=== PATIENT | female | born 1965 | race Caucasian/White ===

== ENCOUNTER → 2020-10-25 10:33 | Outpatient (CLI) | payer BC, SELFPAY ==
--- NOTE | ~2020-10-25 | MM_ITS ---
EXAMINATION: MM screening [facility] BI w mae HISTORY: Screening mammogram TECHNIQUE: Craniocaudal and mediolateral oblique 3-D tomosynthesis images were obtained and synthetic 2-D images were generated. CAD analysis was submitted and interpreted. COMPARISON: 11/22/2018, 07/01/2017, 05/27/2016 BREAST PARENCHYMAL COMPOSITION: The breasts are almost entirely fatty. FINDINGS: There is no evidence of suspicious mass, calcification, or architectural distortion to sugg est malignancy in either breast. There has been no suspicious interval change. IMPRESSION: 1. No mammographic evidence of malignancy. 2. Recommend routine screening mammography in one year. BI-RADS Category 1: Negative Reviewed, dictated and finalized at location A.
== END ==
PROVIDERS: PCP Family Medicine; Visit Provider Physician Assistant
DX: Z12.31 Encounter for screening mammogram for malignant neoplasm of breast (principal)
CPT/HCPCS: 77063; 77067

== ENCOUNTER → 2021-12-20 11:14 | Outpatient (CLI) | payer BC, SELFPAY ==
--- NOTE | ~2021-12-20 | MM_ITS ---
EXAMINATION: MM screening [facility] BI w mae HISTORY: Screening TECHNIQUE: Craniocaudal and mediolateral oblique 3-D tomosynthesis images were obtained and synthetic 2-D images were generated. CAD analysis was submitted and interpreted. COMPARISON: 10/25/2020, 11/22/2018, 07/01/2017 bilateral screening mammogram examinations BREAST PARENCHYMAL COMPOSITION: The breasts are almost entirely fatty. FINDINGS: Biopsy marker on the right; history of prior benign right breast biopsy in 2007. There is n o evidence of suspicious mass, calcification, or architectural distortion to suggest malignancy in ei ther breast. There has been no suspicious interval change. IMPRESSION: 1. No mammographic evidence of malignancy. 2. Recommend routine screening mammography in one year. BI-RADS Category 1: Negative Reviewed, dictated and finalized at location A.
== END ==
PROVIDERS: PCP Family Medicine; Visit Provider Physician Assistant
DX: Z12.31 Encounter for screening mammogram for malignant neoplasm of breast (principal)
CPT/HCPCS: 77063; 77067

== ENCOUNTER → 2021-12-20 11:24 | Outpatient (CLI) | payer BC, SELFPAY ==
--- NOTE | ~2021-12-20 | US_ITS ---
EXAMINATION: US transvaginal DATE: 12/20/2021 11:50 INDICATION: Postmenopausal bleeding TECHNIQUE: Multiple endovaginal sonographic images of the pelvis were obtained. COMPARISON: None. FINDINGS: The uterus measures 7.8 x 6.8 x 3.9 cm. The endometrial complex measures 6 mm. The ovaries are not visualized however no adnexal abnormality is seen. There is no free fluid in the pelvis. IMPRESSION: 1. No sonographic correlate for the patient's symptoms. Reviewed, dictated and finalized at location B.
== END ==
PROVIDERS: PCP Family Medicine; Visit Provider Obstetrics & Gynecology Gynecology
DX: N95.0 Postmenopausal bleeding (principal)
CPT/HCPCS: 76830

== ENCOUNTER 2022-01-27 02:04 | Day surgery (SDC) | payer BC, SELFPAY ==
[2022-01-10 11:23] VITALS: BMI 31.0
[2022-01-27 09:39] VITALS: BP 132/77; PULSE 74; RESP 18; TEMP 36.7; O2SAT 99
--- NOTE | 2022-01-27 09:40 | P.PNAN_ITS ---
Anes - Initial Pre Proc Eval Procedure: Operation Date: 01/27/22 10:30 Proposed Procedures p Screening Colonoscopy - Nilesh Amanda MD Date/Time: 01/27/22 09:40 Surgeon: Nilesh Amanda MD Pre Op Diagnosis: neoplasm screening Patient Data Age: 56 Gender: F Height: 1.63 m Weight: 82 kg Allergies Allergy/AdvReac Type Severity Reaction Status Date / Time Sulfa (Sulfonamide Allergy Unknown Rash Verified 01/27/22 09:39 Antibiotics) sulfanilamide Allergy Unknown Rash Verified 01/27/22 09:39 Home Medications Medication Instructions Recorded Confirmed Type No Home Medications 01/27/22 01/27/22 History Patient hx anesthesia problems: none Family hx anesthesia problems: none Results Review: All pre-operative results and documents have been reviewed as part of the pre- operative evaluation. [facility] Surgical History Surgical History (Updated 01/27/22 @ 09:40 by Victor Manuel Bliss DO) History of cholecystectomy Social History Social History Smoking status: Never smoker Second hand tobacco smoke exposure: No Smoking end date: 04/13/94 Alcohol intake: never Living arrangements: with family Spiritual care concerns: No Anes - Eval Final PreProcedure Day of Procedure 01/27/22 09:40 Patient weight: obese Heart: regular rate and rhythm Lungs: clear to auscultation Airway: Mallampati scale class II Neurological: alert and oriented Last oral intake: >/= 8 hours ASA classification: II Emergent: no Anesthetic plan: proceed Anesthesia type and monitoring: general GIVS and standard monitoring Results Review: All pre-operative results and documents have been reviewed as part of the pre- operative evaluation. Informed Consent: The patient's anesthetic plan and its attendant risks and benefits were discussed with the patient/family/POA. Questions were solicited and answers provided to the satisfaction of the patient/family/POA.
[2022-01-27] MEDS: LACTATED RINGERS 1,000 ML 150 ML IV CONT (09:50)
--- NOTE | 2022-01-27 10:15 | P.HP_ITS ---
History of Present Illness History of Present Illness Consent: Risks, benefits, and alternatives have been discussed and questions answered. Patient agrees to proceed with procedure. Chief complaint: neoplasm screening Narrative: Ann Conrad is a 56 year old female Presents for screening colonoscopy. Patient's current weight appetite and bowel movements are normal. Patient denies abdominal pain. She has had no bleeding. Family history is noncontri butory. [facility] Surgical History Surgical History (Updated 01/27/22 @ 09:40 by Victor Manuel Bliss DO) History of cholecystectomy Social History Social History Smoking status: Never smoker Second hand tobacco smoke exposure: No Smoking end date: 04/13/94 Alcohol intake: never Living arrangements: with family Spiritual care concerns: No Meds Home Medications and Allergies Home Medications Medication Instructions Recorded Confirmed Type No Home Medications 01/27/22 01/27/22 History Allergies Allergy/AdvReac Type Severity Reaction Status Date / Time Sulfa (Sulfonamide Allergy Unknown Rash Verified 01/27/22 09:39 Antibiotics) sulfanilamide Allergy Unknown Rash Verified 01/27/22 09:39 Exam Narrative: Physical exam reveals patient to be alert. Vital signs stable. HEENT exam is unremarkable. Patient is anicteric. Lungs are clear to auscultation and percussion. Heart is without murmur or extra sounds. Abdomen bowel sounds are present soft nontender with no organomegaly. Digital external rectal exam is normal. Assessment and Plan Assessment and plan (1) Encounter for screening colonoscopy: Code(s): Z12.11 - Encounter for screening for malignant neoplasm of colon Status: Acute Assessment and Plan: Patient presents for screening colonoscopy. Patient appears to be at average risk for colon polyps. Further recommendations will be given after endoscopy.
[2022-01-27 10:43] VITALS: BP 83/48; PULSE 78; RESP 22; O2SAT 94
[2022-01-27 10:53] VITALS: BP 104/67; PULSE 71; RESP 18; O2SAT 93
== END 2022-01-27 11:18 | disposition home or self-care (01) ==
PROVIDERS: PCP Family Medicine; Visit Provider Internal Medicine Gastroenterology
PROC: 0DJD8ZZ Inspection of Lower Intestinal Tract, Via Natural or Artificial Opening Endoscopic (ICD-10-PCS; CPT 45378; principal; 2022-01-27 10:30)
DX: Z12.11 Encounter for screening for malignant neoplasm of colon (principal); K64.8 Other hemorrhoids; Z90.49 Acquired absence of other specified parts of digestive tract; E66.9 Obesity, unspecified; Z68.30 Body mass index [BMI] 30.0-30.9, adult
CPT/HCPCS: 45378; J2704; J7120

== ENCOUNTER 2022-02-10 02:24 | Day surgery (SDC) | payer BC, SELFPAY ==
[2022-02-05 13:27] VITALS: BMI 31.0
--- NOTE | 2022-02-05 13:38 | PC.NURSE ---
Report to the Outpatient Waiting Room, entrance under the green pavilion located off [facility], at time __12:15PM on date __02/10/22 . Planned Procedure Time: ___2:15PM . Time changes happen often and if your time is changed the preop area will call you the afternoon before. - You and your visitor will be asked to self-screen and do not enter if you have any COVID symptoms. - We encourage only one visitor and NO visitors under age 16 are allowed at this time. Your visitor will receive communication by the phone number that is given day of service. - The patient visitor is requested to social distance or may leave the building when not with patient due to restrictions. - A mask is required within the hospital. Patients may have clear liquids (water, carbonated beverages, clear teas, apple juice) until 3 hours prior to surgery with a maximum of 20 ounces. - No food from midnight until time of surgery Take the following medications with a SIP of water the morning of surgery: __NONE Medications to discontinue per physician NONE Date to take last dose Please no make-up, nail armenian, hairspray, perfume, deodorant, or body powder the day of surgery. No jewelry (including any body piercings) or valuables the day of surgery, leave them at home. Please take a shower or bath the night before, or the morning of, surgery with an antibacterial soap. Wear comfortable, loose fitting clothing. Children are encouraged to wear pajamas. - Jewelry must be removed prior to entering the operating room. Rings and piercings that are not removed may be cut off. - The hospital will not accept responsibility for valuables. - Please leave all valuables, including medications, at home the day of surgery. If you are going home after surgery, a licensed test car driver must drive you home. - NO public transportation without another adult. - We recommend that an adult stay with you for 24 hours following discharge. - We also recommend that you do not drive, make important decision, drink alcoholic beverages, or take any drugs that were not prescribed by your health care provider for at least 24 hours after your discharge time. Follow any additional instructions given to you from your surgeon. If you or anyone in your household have experienced Covid symptoms in the past week, please notify your surgeon or the nurse liaison at the phone number below for possible testing. Telephone instructions given to __PATIENT and asked if any additional questions and then verbalized understanding. Patient advised to call surgeon office or pre surgery nurse liaison [phone] if any additional questions.
--- NOTE | 2022-02-10 10:48 | WPDHPUPDATE1 ---
History and Physical Update Update Date/Time: 02/10/22 10:48 History and Physical has been reviewed, including an updated exam of the patient. There are NO changes in the patient's condition. Risks, benefits, and alternatives have been discussed and questions answered. Patient agrees to proceed with procedure.
--- NOTE | 2022-02-10 10:48 | PM.HPGS ---
History of Present Illness History of Present Illness Consent: Risks, benefits, and alternatives have been discussed and questions answered. Patient agrees to proceed with procedure. Chief complaint: post menopausal bleeding Narrative: Ann Conrad is a 56 year old female with bleeding episode for 3 to 4 days in October. Patient presented as a new patient on December 05 and pelvic ultrasound was ordered and completed 12/20 showing a 6mm endometrial complex. It was recommended to proceed with D&C hysteroscopy. Risks of infection, bleeding, perforation, and possible pathology were reviewed. Review of Systems Review of Systems: not repeated day of surgery; patient states no changes in status PMFSH Past Medical History Medical History (Updated 02/10/22 @ 10:52 by Eulalia Oropeza MD) (normal spontaneous vaginal delivery) x1 Surgical History Surgical History (Updated 02/10/22 @ 10:51 by Eulalia Oropeza MD) History of x1 History of cholecystectomy Social History Social History Smoking status: Never smoker Second hand tobacco smoke exposure: No Smoking end date: 04/13/94 Alcohol intake: never Substance use: never Living arrangements: alone Spiritual care concerns: No Meds Home Medications and Allergies Home Medications Medication Instructions Recorded Confirmed Type No Home Medications 02/05/22 02/05/22 History Allergies Allergy/AdvReac Type Severity Reaction Status Date / Time Sulfa (Sulfonamide Allergy Unknown Rash Verified 02/05/22 13:26 Antibiotics) Exam Const: General: healthy appearing and alert Orientation/consciousness: patient oriented x3 Resp: Effort & Inspection: normal respiratory effort GI: GI Palp: Yes Soft to palpation, No Tenderness to palpation present (GI) and No Palpable mass present : External Female Exam: normal external appearance Speculum Exam - Vagina: normal appearance of the vagina and normal vaginal discharge Speculum Exam - Cervix: normal appearance of the cervix Bimanual exam- vagina & uterus: uterine size normal and consistency normal Bimanual Exam- Adnexa, other: normal adnexae and No adnexal tenderness Neuro: General: patient oriented x3 Assessment and Plan Assessment and plan (1) Post-menopausal bleeding: Code(s): N95.0 - Postmenopausal bleeding Status: Acute Assessment and Plan: plan is to proceed with D&C hysteroscopy
[2022-02-10 12:29] VITALS: BP 133/81; PULSE 80; RESP 16; TEMP 36.6; O2SAT 100
[2022-02-10] MEDS: ACETAMINOPHEN 500 MG TABLET 1000 MG PO (12:51)
[2022-02-10] MEDS: LACTATED RINGERS 1,000 ML 30 ML IV CONT (12:58)
--- NOTE | 2022-02-10 13:01 | P.PNAN_ITS ---
Anes - Initial Pre Proc Eval Procedure: Operation Date: 02/10/22 14:30 Proposed Procedures p Hysteroscopy, Dilation and Curettage - Eulalia Oropeza MD Date/Time: 02/10/22 13:01 Surgeon: Eulalia Oropeza MD Pre Op Diagnosis: post menopausal bleeding Patient Data Age: 56 Gender: F Height: 1.63 m Weight: 82 kg Allergies Allergy/AdvReac Type Severity Reaction Status Date / Time Sulfa (Sulfonamide Allergy Intermediate Rash Verified 02/10/22 12:41 Antibiotics) Home Medications Medication Instructions Recorded Confirmed Type No Home Medications 02/05/22 02/10/22 History Patient hx anesthesia problems: none Family hx anesthesia problems: none Results Review: All pre-operative results and documents have been reviewed as part of the pre- operative evaluation. [facility] Surgical History Surgical History History of x1 History of cholecystectomy Social History Social History Smoking status: Never smoker Second hand tobacco smoke exposure: No Smoking end date: 04/13/94 Alcohol intake: never Substance use: never Living arrangements: alone Spiritual care concerns: No Anes - Eval Final PreProcedure Day of Procedure 02/10/22 13:01 Patient weight: overweight Heart: regular rate and rhythm Lungs: clear to auscultation Airway: Mallampati scale class II Neurological: alert and oriented Last oral intake: >/= 8 hours ASA classification: III Emergent: no Anesthetic plan: proceed Anesthesia type and monitoring: general GIVS and standard monitoring Results Review: All pre-operative results and documents have been reviewed as part of the pre- operative evaluation. Informed Consent: The patient's anesthetic plan and its attendant risks and benefits were discussed with the patient/family/POA. Questions were solicited and answers provided to the satisfaction of the patient/family/POA.
[2022-02-10] MEDS: LIDOCAINE HCL 1% PF 30 ML VIAL 10 ML INFILTRATE (15:09)
[2022-02-10] MEDS: KETOROLAC 30 MG/ML VIAL (*BKC) IV PUSH (15:13)
[2022-02-10 15:19] VITALS: BP 122/71; PULSE 85; RESP 16; O2SAT 97
--- NOTE | 2022-02-10 15:20 | W.PM.PROC2 ---
Procedure Note - Detailed Date of Procedure 02/10/22 Pre-op Diagnosis post menopausal bleeding Post-op Diagnosis Same Procedure Performed D&C hysteroscopy Surgeon Eulalia Oropeza MD Anesthesia MAC and Local Findings uterus sounds to 8cm and is grossly atrophic Description of Procedure the patient is taken to the operating room and placed under anesthesia in the dorsal lithotomy position. She was prepped and draped in the usual sterile fashion. [place] speculum was placed in the vagina and the cervix grasped on the anterior lip with a tenaculum. Uterus is sounded to 8cm. The cervix is dilated to a 5 [place]. The hysteroscope was placed with no abnormalities noted it is immediately removed. The small sharp curette is used to curette the endometrium until a good uterine cry was noted in all areas. Minimal material was obtained consistent with the atrophic appearance. All instruments are removed. The patient is awakened from anesthesia in stable condition. Sponge, needle, and instrument counts are correct per the OR staff. Estimated Blood Loss 5 Drains No Packing No Pathology Yes ( Endometrial curettings) Complications No immediate complications Condition Stable Disposition PACU
[2022-02-10 15:45] VITALS: BP 118/78; PULSE 75; RESP 16; O2SAT 97
== END 2022-02-10 16:07 | disposition home or self-care (01) ==
PROVIDERS: PCP Family Medicine; Visit Provider Obstetrics & Gynecology Gynecology
PROC: 0U5B8ZZ Destruction of Endometrium, Via Natural or Artificial Opening Endoscopic (ICD-10-PCS; CPT 58563; principal; 2022-02-10 14:30)
DX: N95.0 Postmenopausal bleeding (principal); N72 Inflammatory disease of cervix uteri
CPT/HCPCS: 58558; 88305; A9270; J1885; J2250; J2704; J3010; J7120

== ENCOUNTER → 2022-02-14 14:48 | Outpatient (CLI) | payer BC, SELFPAY ==
--- NOTE | ~2022-02-14 | DEXA_ITS ---
Bone Density Report Name: MAXWELL MCNAIR Age: 56 Sex: Female Ethnicity: White Date of : 1965 Indication: postmenopausal; screening for osteoporosis; Referring Provider: ALICIA ALEXANDER Study: Bone densitometry was performed. Exam Date: February 14, 2022 Accession number: [id number] Bone Density: Region BMD T-score Z-score Classification AP Spine (L1-L4) 1.005 -0.4 0.6 Normal Femoral Neck (Left) 0.780 -0.6 0.4 Normal Total Hip (Left) 0.981 0.3 1.0 Normal Femoral Neck (Right) 0.705 -1.3 -0.3 Osteopenia Total Hip (Right) 0.917 -0.2 0.4 Normal Total Hip Mean 0.949 0.1 0.7 Normal World Health Organization criteria for BMD impression classify patients as: Normal (T-score at or above -1.0), Osteopenia (T-score between -1.0 and -2.5), or Osteoporosis (T-score at or below -2.5). 10-year Fracture Risk(1): Major Osteoporotic Fracture 5.8% Hip Fracture 0.4% Reported Risk Factors: [place] (), Neck BMD=0.705, BMI=30.8 (1) FRAX(R) Version 3.08. Fracture probability calculated for an untreated patient. Fracture probability may be lower if the patient has received treatment. Clinical Information Provided by Patient: Has used the following medications: Vitamin D Patient maximum height was 65 Menopause Age: 52 No regular weight bearing exercise Drinks caffeinated beverages Onset of menses at age 14 Number of children 2 Impression: The patient has low bone mass, based on the Right Femoral Neck T-score. The patient has an estimated ten-year risk of hip fracture of 0.4% and an estimated ten-year risk of major fracture of 5.8%, based on the WHO FRAX algorithm. Discussion: BONE DENSITY IS LOW AT ONE OR MORE SKELETAL SITES. This patient's lowest T-score is low at one or more skeletal sites. It meets the World Health Organization's (WHO) criteria for ?low bone mass? (T-score between -1.0 and -2.5). The patient's 10-year risk of fracture as calculated by FRAX is less than the threshold where pharmacological therapy is recommended by the National Osteoporosis Foundation (NOF). However, all treatment decisions require clinical judgment and consideration of individual patient factors, including patient preferences, comorbidities, previous drug use, risk factors not captured in the FRAX model (e.g., frailty, falls, vitamin D deficiency, increased bone turnover, interval significant decline in bone density) and possible under or overestimation of fracture risk by FRAX. The patient should follow a healthful lifestyle (good nutrition with adequate calcium and vitamin D, and appropriate weight-bearing exercise). Follow-Up: Consider repeating this study in 2 to 3 years to reassess this patient's status, or sooner if there is some new clinical indication. Reported by: HECTOR on 02/14/2022 2:56:00 P
== END ==
PROVIDERS: PCP Family Medicine; Visit Provider Obstetrics & Gynecology Gynecology
DX: Z78.0 Asymptomatic menopausal state (principal); M85.851 Other specified disorders of bone density and structure, right thigh
CPT/HCPCS: 77080

== ENCOUNTER → 2023-03-13 10:34 | Outpatient (CLI) | payer BC, SELFPAY ==
--- NOTE | ~2023-03-13 | MM_ITS ---
EXAMINATION: MM screening [facility] BI w mae HISTORY: Screening mammogram TECHNIQUE: Craniocaudal and mediolateral oblique 3-D tomosynthesis images were obtained and synthetic 2-D images were generated. CAD analysis was submitted and interpreted. COMPARISON: 12/20/2021, 10/25/2020 bilateral screening mammogram examinations BREAST PARENCHYMAL COMPOSITION: The breasts are almost entirely fatty. FINDINGS: Biopsy marker is again noted on the right; history of prior benign right breast biopsy. The re is no evidence of suspicious mass, calcification, or architectural distortion to suggest malignanc y in either breast. There has been no suspicious interval change. IMPRESSION: 1. No mammographic evidence of malignancy. 2. Recommend routine screening mammography in one year. BI-RADS Category 1: Negative Reviewed, dictated and finalized at location A. NOLOGY OFFICER
== END ==
PROVIDERS: PCP Family Medicine; Visit Provider Family Medicine
DX: Z12.31 Encounter for screening mammogram for malignant neoplasm of breast (principal)
CPT/HCPCS: 77063; 77067

== ENCOUNTER 2024-05-20 14:49 | Outpatient (CLI) | payer BC, SELFPAY ==
--- NOTE | ~2024-05-20 | MM_ITS ---
EXAMINATION: MM screening [facility] BI w mae HISTORY: Screening TECHNIQUE: Craniocaudal and mediolateral oblique 3-D tomosynthesis images were obtained and synthetic 2-D images were generated. CAD analysis was submitted and interpreted. COMPARISON: Comparison to multiple prior studies sequentially, with oldest reviewed study dated 05/27. BREAST PARENCHYMAL COMPOSITION: Not Dense: The breasts are almost entirely fatty. FINDINGS: There is no evidence of suspicious mass, calcification, or architectural distortion to sugg est malignancy in either breast. There has been no suspicious interval change. IMPRESSION: 1. No mammographic evidence of malignancy. 2. Recommend routine screening mammography in one year. BI-RADS Category 1: Negative Reviewed, dictated and finalized at location B. ER ENCLOSURE INSTALLER
== END 2024-05-20 14:50 | disposition home or self-care (01) ==
LOC: MICIMG 14:50
PROVIDERS: PCP Family Medicine; Visit Provider Family Medicine
DX: Z12.31 Encounter for screening mammogram for malignant neoplasm of breast (principal)
CPT/HCPCS: 77063; 77067

== ENCOUNTER 2024-07-25 14:47 | Outpatient (CLI) | payer BC, SELFPAY ==
--- NOTE | ~2024-07-25 | DEXA_ITS ---
Bone Density Report Name: MAXWELL MCNAIR Age: 58 Sex: Female Ethnicity: White Date of : 1965 Indication: postmenopausal; screening for osteoporosis; Referring Provider: ALICIA ALEXANDER Study: Bone densitometry was performed. Exam Date: July 25, 2024 Accession number: [id number] Bone Density: Region BMD T-score Z-score Classification AP Spine(L1-L4) 0.977 -0.6 0.6 Normal Femoral Neck (Left) 0.727 -1.1 0.0 Osteopenia Total Hip (Left) 0.959 0.1 0.9 Normal Femoral Neck (Right) 0.691 -1.4 -0.3 Osteopenia Total Hip (Right) 0.879 -0.5 0.3 Normal Total Hip Mean 0.919 -0.2 0.6 Normal World Health Organization criteria for BMD impression classify patients as: Normal (T-score at or above -1.0), Osteopenia (T-score between -1.0 and -2.5), or Osteoporosis (T-score at or below -2.5). 10-year Fracture Risk(1): Major Osteoporotic Fracture 6.7% Hip Fracture 0.5% Reported Risk Factors: [place] (), Neck BMD=0.691, BMI=23.1 (1) FRAX(R) Version 3.08. Fracture probability calculated for an untreated patient. Fracture probability may be lower if the patient has received treatment. Clinical Information Provided by Patient: Has used the following medications: Vitamin D Patient maximum height was 65.0 Menopause Age: 52 No regular weight bearing exercise Does not regularly consume dairy products Onset of menses at age 14 Number of children 2 Impression: The patient has low bone mass, based on the Right Femoral Neck T-score. The patient has an estimated ten-year risk of hip fracture of 0.5% and an estimated ten-year risk of major fracture of 6.7%, based on the WHO FRAX algorithm. Discussion: BONE DENSITY IS LOW AT ONE OR MORE SKELETAL SITES. This patient's lowest T-score is low at one or more skeletal sites. It meets the World Health Organization's (WHO) criteria for ?low bone mass? (T-score between -1.0 and -2.5). The patient's 10-year risk of fracture as calculated by FRAX is less than the threshold where pharmacological therapy is recommended by the National Osteoporosis Foundation (NOF). However, all treatment decisions require clinical judgment and consideration of individual patient factors, including patient preferences, comorbidities, previous drug use, risk factors not captured in the FRAX model (e.g., frailty, falls, vitamin D deficiency, increased bone turnover, interval significant decline in bone density) and possible under or overestimation of fracture risk by FRAX. The patient should follow a healthful lifestyle (good nutrition with adequate calcium and vitamin D, and appropriate weight-bearing exercise). Follow-Up: Consider repeating this study in 2 to 3 years to reassess this patient's status, or sooner if there is some new clinical indication. Reported by: FRANCESCO on 07/25/2024 3:22:00 PM. Reviewed, dictated and finalized at location A. NAVIN
--- OUTSIDE RECORDS SUMMARY | 2024-07-25 16:35 | XMS_ITS | CONTINUITY OF CARE DOCUMENT ---
Author Name ramiro rubio Address Unknown Organization [facility] Office Address [id number] [place] [address] [address] [place] [address] Phone [phone] Care Team Providers Care Supervisor Firearms Name Role Phone Jakub CARMICHAEL, Jessie Unavailable HOA BETTS MD Unavailable HOA BETTS MD Unavailable [phone] PROBLEMS Condition Status Date Provider Notes Cardiovascular screening active Debby [place] [employer] PROVID[employer] Payer name Policy type / Coverage type [place] red green party ID SELF PAY TREATMENT PLAN Date Name CT, Coronary Calcium Score HISTORY OF PROCEDURES Procedure Date Procedure Name Provider Procedure Notes S tatus CT- Coronary CA score Jessie Call MD completed
== END 2024-07-25 14:48 | disposition home or self-care (01) ==
PROVIDERS: PCP Family Medicine; Visit Provider Obstetrics & Gynecology Gynecology
DX: M85.89 Other specified disorders of bone density and structure, multiple sites (principal); Z78.0 Asymptomatic menopausal state; Z13.820 Encounter for screening for osteoporosis
CPT/HCPCS: 77080